=== PATIENT | female | born 1995 | race Caucasian/White ===

== ENCOUNTER 2021-05-29 09:27 | Emergency (ER) | payer OTHER ==
[~2021-05-29] VITALS: Ht 165.1 cm; Wt 73.5 kg
[2021-05-29 09:27] VITALS: BP 135/94
[2021-05-29] MEDS ORDERED: bcp (09:45)
--- NOTE | 2021-05-29 12:32 | REP ---
INDICATION: R 2nd toe pain/"nerve pain" x1 year, r/o bone spur/neuroma COMPARISON: None. TECHNIQUE: AP, lateral, bilateral oblique views right foot. FINDINGS: The osseous structures and joint spaces are intact and normal. There is no evidence for acute fracture or dislocation. Surrounding soft tissues are unremarkable. No subcutaneous emphysema or radiodense foreign body. IMPRESSION: Normal age-appropriate right foot radiographs. <Electronically signed by Helder Baez > 05/29/21 [id number]
== END 2021-05-29 14:27 | disposition home or self-care (01) ==
LOC: M ED 09:27
DX: G57.61 Lesion of plantar nerve, right lower limb (principal); B07.0 Plantar wart; M79.674 Pain in right toe(s)